=== PATIENT | female | born 1940 | race Caucasian/White ===

== ENCOUNTER 2016-04-18 02:46 | Emergency (ER) | payer MEDICARE, OTHER ==
[~2016-04-18] VITALS: Ht 167.6 cm; Wt 50.4 kg
[2016-04-18] MEDS ORDERED: GUAIFENESIN/CODEINE 100MG-10MG/5ML SYRUP (ROBITUSSIN AC) 5 ML UDC PO ONE (03:10)
[2016-04-18 03:34] LABS: BASOPHILS % (AUTO) 0 % (0-2); EOSINOPHILS % (AUTO) 1 % (0-4); LYMPHOCYTES # (AUTO) 0.2 X10^3; MEAN CORPUSCULAR HEMOGLOBIN 30.6 PG (26.0-34.0); MEAN CORPUSCULAR HGB CONC 32.1 g/dL (31.0-37.0); MEAN CORPUSCULAR VOLUME 95 FL (80-100); MEAN PLATELET VOLUME 9.2 FL (6.0-9.5); MONOCYTES # (AUTO) 0.3 X10^3; MONOCYTES % (AUTO) 9 % (3-11); NEUTROPHILS % (AUTO) 84 % (51-67); PLATELET COUNT 144 10^3uL (150-450); WHITE BLOOD COUNT 3.59 10^3uL (4.0-11.0)
[2016-04-18] MEDS ORDERED: predniSONE 5 MG (DELTASONE) TABLET PO ONE (04:00)
[2016-04-18 04:15] VITALS: BP 179/74
== END 2016-04-18 04:16 | disposition home or self-care (01) ==
LOC: ED 02:49
DX: J44.1 Chronic obstructive pulmonary disease with (acute) exacerbation (principal)
CPT/HCPCS: 36415; 71020; 85025; 99282; A9270; 99283

== ENCOUNTER 2016-04-20 22:16 | Emergency (ER) | payer MEDICARE, OTHER ==
[~2016-04-20] VITALS: Ht 167.6 cm; Wt 50.4 kg
[2016-04-20] MEDS ORDERED: SODIUM CHLORIDE FLUSH 3 ML SYR IV PRN (22:30)
[2016-04-20] MEDS ORDERED: SODIUM CHLORIDE FLUSH 10 ML SYR IV PRN (22:30)
[2016-04-20] MEDS ORDERED: methylPREDNISolone 125 MG (Solu-MEDROL) VIAL IV ONE (23:20)
[2016-04-20 23:22] LABS: BASOPHILS % (AUTO) 0 % (0-2); EOSINOPHILS % (AUTO) 1 % (0-4); LYMPHOCYTES # (AUTO) 0.2 X10^3; MEAN CORPUSCULAR HEMOGLOBIN 30.6 PG (26.0-34.0); MEAN CORPUSCULAR VOLUME 96 FL (80-100); MEAN PLATELET VOLUME 9.8 FL (6.0-9.5); MONOCYTES # (AUTO) 0.3 X10^3; MONOCYTES % (AUTO) 8 % (3-11); NEUTROPHILS % (AUTO) 85 % (51-67); PLATELET COUNT 125 10^3uL (150-450)
[2016-04-20 23:30] LABS: ALBUMIN 3.5 g/dL (3.4-5.0); CALCULATED IONIZED CALCIUM 3.9 mg/dL (3.8-4.6); TOTAL PROTEIN 6.2 g/dL (6.4-8.5)
[2016-04-21] MEDS ORDERED: ASPIRIN 81 MG CHEW (CHILDREN'S ASA) PO ONE (01:05)
[2016-04-21 02:03] VITALS: BP 146/46
== END 2016-04-21 02:07 | disposition short-term general hospital (02) ==
LOC: ED 22:17
DX: J11.1 Influenza due to unidentified influenza virus with other respiratory manifestations (principal); Z87.891 Personal history of nicotine dependence; R09.02 Hypoxemia; J44.9 Chronic obstructive pulmonary disease, unspecified; J20.9 Acute bronchitis, unspecified; Z85.118 Personal history of other malignant neoplasm of bronchus and lung; Z99.81 Dependence on supplemental oxygen; R06.02 Shortness of breath
CPT/HCPCS: 36415; 71010; 80053; 82550; 82553; 83605; 83735; 83880; 84484; 85025; 85610; 85730; 86140; 87040; 87486; 87581; 87633; 87798; 93005; 96374; 99285; A9270; J2930; 99284

== ENCOUNTER → 2016-04-20 | Outpatient (CLI) | payer MEDICARE, OTHER | LOC: EMS 22:13 | PROVIDERS: ATTEND Emergency Medicine | DX: R06.02 Shortness of breath (principal); R06.09 Other forms of dyspnea ==

== ENCOUNTER → 2016-04-21 | Outpatient (CLI) | payer MEDICARE, OTHER | LOC: EMS 01:55 | PROVIDERS: ATTEND Emergency Medicine | DX: J09.X2 Influenza due to identified novel influenza A virus with other respiratory manifestations (principal); R09.02 Hypoxemia; Z99.2 Dependence on renal dialysis ==

== ENCOUNTER 2016-07-07 12:57 | Outpatient (RCR) | payer MEDICARE, OTHER ==
[~2016-07-07 12:57] MED LIST: ALB0.5V INH; ALBU8.5H2 IH; ALBU8.5H6 INH; ALPR.5T PO; ALPR0.25 PO; ALPR0.5T11 PO; ARFO15VI2 IH; ASPI-345 PO; ASPI-586 PO; ATOR40TA59 PO; BUDE0.256 IH; CALC200T2 PO; CEFD300C PO; CITA20TA12 PO; DOCU-34 PO; GFCD10B GT; HYDR-3702 PO; HYDR-3922 PO; INDA1.25 PO; IPRA3AMP IH; LEVO500T16 PO; LSNP20T PO; MAGN250T PO; METO25TA60 PO; METR500T PO; ND-PRIM50T; OMEP20CA6 PO; PHEN-639 PO; POLY119P5 PO; POTA10CA43 PO; PRED20TA PO; PRED5POW6 MC; PRED5TAB PO; PROP40TA5 PO; VILA40TA PO; [UNRECOGNIZED DRUG - REMARK]
--- NOTE | 2016-07-13 12:46 | PT/OT/ST INITIAL EVALUATION ---
Department of Health and Human Services Form Approved [facility] Care Financing Administration OMB No. [id number] PLAN OF CARE/ASSESSMENT FOR OUTPATIENT REHABILITATION (Complete for Initial Claims Only) 1. PATIENT'S NAME Sindhu Rojas 2. ACC # [id number] 3. [facility] [id number] 4. PROVIDER NO. [id number] 5. TYPE: PT 6. PRIOR HOSPITALIZATION NA 7. PRIMARY DX Muscle tension headaches 8. SECONDARY DX NA 9. ONSET DATE Approximately 6 months ago 10. REFERRAL DATE 07/02/2016 11. SOC. DATE 07/07/2016 12. TIME OF EVAL 13:02 TO 13:[address] Tyra Huynh via KAMILA Schmitt 13. CHARGES/UNITS Evaluation 13029 2 units of therapeutic exercise 94819 14. G CODES [id number] for the initial M0016-UA for goal 15. PRIOR LEVEL OF FUNCTION; PERTINENT HISTORY (Prior therapy results, reason for referral.) S: Prior to therapy the patient did consent to today's evaluation and treatment. The patient is a 75-year-old female referred by KAMILA Schmitt to address muscle tension headaches. The patient notes she began experiencing headaches approximately 6 months ago when attending dialysis and sitting in the chairs there. The patient notes he dialysis chairs place her head in a forward flexed position making it uncomfortable for her. She began experiencing pain along that occipital bone, as well as having increased muscle tightness. The patient notes the headaches have persisted longer throughout the day over the last few months to the point now she has difficulty sleeping due to these. Prior level of function: Prior to the onset of headaches, the patient had no issues with sleeping, and was able to set through the dialysis without issues. Current level of function: The patient is able to read and work on her computer without difficulty, but does note limitation in sitting without pain during dialysis. Therapy History: The patient denies any recent therapy for this issue. Precautions: With care the patient has a right upper extremity fistula, therefore avoid blood pressure on this arm. Pain level: Current pain level is 0/10, maximum pain 4 to 5/10. The pain is reported along the occipital bone up to the superior portion of her head and can be clear to the frontal region. Aggravating factors: As stated prior, the pain is aggravated by sitting in the dialysis chair. Relieving factors: Her nondialysis days. Diagnostic testing: None Past medical history: Lung cancer, which has resolved, however, the patient did have a lumpectomy and partial lobectomy. The patient does have dialysis 3 days a week in which she has to sit in a chair for 3 to 4 hours at a time. She is on 3 liters of O2 continuously, has atrial fibrillation and hypertension. Current medications: The patient reports taking Tylenol, which she does not believe is helpful for her headaches. She also takes baby aspirin and medications for her hypertension. Activity level: The patient reports as low. Personal health rating: Poor. Patient's Goal: The patient's goal is to have no headaches. 16. INITIAL ASSESSMENT/SAFETY PRECAUTIONS/MEDICAL COMPLICATIONS (Level of function at start of care. Be specific, use objective measures, list problems.) O: APPEARANCE, OBSERVATION AND GAIT: The patient is a frail, appearing older female. She demonstrates muscle guarding with passive cervical flexion in the cervical paraspinals. Mild forward head positioning, as well as rounded shoulders. There is the presence of fistula in the right lower extremity with bruising noted in that arm from dialysis. PALPATION: The patient has left upper trapezius tightness, as well as tenderness to palpation and normalized right upper trapezius movement. The sternocleidomastoids are tight bilaterally. SPECIAL TESTS: The patient's scores a 23/50 on the Modified Oswestry pain questionnaire. RANGE OF MOTION/FLEXIBILITY: Cervical flexion is 50 degrees demonstrating poor cervical spine segmentation. Cervical extension is 40 degrees, side bending is limited 90% bilaterally. Right cervical rotation 51 degrees, left 59 degrees. STRENGTH: Right shoulder flexion 4+/5, left 5/5. Right shoulder abduction 4/5, left 4/5. Right shoulder internal rotation 4+/5, left 4+/5. Right shoulder external rotation 3+/5, left 3+/5. TODAY'S TREATMENT: Today's treatment consisted of educating the patient on the findings of the evaluation and recommended treatment plan. The physical therapist initiated cervical spine range of motion, and stretching exercises, as well as initiating strengthening of the parascapular musculature. The physical therapist and patient discussed positioning modifications to improve the patient's alignment while in the dialysis chair and encouraged her to complete gentle range of motion exercises to prevent stiffness. 17. INITIAL POC: (Specify procedures, modalities, short and assisted goals) A: The patient presents to physical therapy with a 6-month history of progressing muscle tension headaches related to the positioning of her head during dialysis treatments. PROGNOSIS: The patient does have a good outcome in physical therapy. She is very willing to make modifications to positioning during dialysis, as well as willing to utilize exercises provided by the physical therapist. OUTCOME ASSESSMENT: The patient scores a 23/50 on the Modified Oswestry pain questionnaire with a G-code of C2966-IE. INFORMED CONSENT: The diagnosis, prognosis, treatment plan, risks and expected outcomes were discussed with this patient and she is agreeable to today's established plan of care. SHORT TERM GOALS: 1. The patient will report independence and compliance with home exercise program and positioning modifications to decreased pain in her neck during dialysis. 2. The patient will improve right cervical rotation to be a minimum of 59 degrees to be equal to the left. 3. The patient will improve shoulder external rotation to be a minimum of 4/5 bilaterally. 4. The patient will report pain no greater than a 1 to 2/10 during dialysis treatment over a 1-week time period. P: Plan to see this patient 2 times a week for 3 weeks to address her muscle tension headaches. The patient does have range of motion limitations and strength deficits in the shoulder region. Treatment will include therapeutic exercise emphasis on improving range of motion in the cervical spine, as well as progressive strengthening of the parascapular musculature and shoulder musculature to improve postural support for her neck and shoulders. The patient will be educated on any further positioning modifications to improve her posture during dialysis treatment. Modalities will not be used secondary to the patient's past medical history. Manual therapy techniques may be utilized, however, caution should be used to avoid joint mobilizations due to the patient's frailty. The patient was provided a home exercise program and this will be progressed as needed. Thank you for the referral of this patient. 18. FREQUENCY 2 times per week 19. DURATION 3 weeks 20. FUNCTIONAL LEVEL (End of claim period) 21. PHYSICIAN SIGNATURE ? ON FILE OR ENTER HERE: 22. DATE: I certify the need for these services furnished under this plan of care and if for partial hospitalization. 23. CERTIFICATION FROM THROUGH FORM [id number]
== END 2016-07-27 10:46 | disposition home or self-care (01) ==
LOC: PT 12:57
PROVIDERS: ATTEND Family Medicine
DX: G44.209 Tension-type headache, unspecified, not intractable (principal)
CPT/HCPCS: 97110; 97161; G8981; G8982